=== PATIENT | male | born 1995 | race Caucasian/White ===

== ENCOUNTER 2017-10-30 10:45 | Emergency (ER) | payer OTHER ==
[~2017-10-30] VITALS: Ht 162.6 cm; Wt 96.7 kg
[2017-10-30 11:10] VITALS: TEMP 36.9; Ht 162.6 cm; Wt 96.7 kg
[2017-10-30] MEDS ORDERED: XYLOCAINE 1%/SOD BICARB 20 ML VIAL INFIL STA (11:53)
--- NOTE | 2017-10-30 12:43 | EMERGENCY ROOM VISIT NOTE ---
ED Visit Note First contact with patient: 11:34 CHIEF COMPLAINT: Finger laceration HISTORY OF PRESENT ILLNESS: This 22-year-old male patient presents to the emergency department, ambulatory, approximately 45 minutes after cutting the distal left index finger while cutting an avocado. The bleeding has not stopped. Denies weakness or numbness of the finger. The patient has full range of motion of the fingers. The patient rates the pain as throbbing/sharp and 8/ 10. The patient denies any other injuries. The patient's tetanus shot is not up to date. REVIEW OF SYSTEMS: A 6 system review of systems was completed with positives and pertinent negatives listed in the HPI. ALLERGIES: None MEDICATIONS: None PMH: None SOCIAL HISTORY: The patient lives locally with family. He denies drug, alcohol , tobacco use. PHYSICAL EXAM: Vital Signs: Reviewed Nurse's notes, vital signs stable. GENERAL : This is a 22-year-old male, in no acute distress, well developed, well nourished. SKIN: There is a 2 cm long laceration on the anterior aspect of the distal left index finger. This appears to be a partial avulsion injury. There is no foreign material in the wound and it looks clean. There is moderate bleeding. No deep structures such as tendons, bones, or significant blood vessels are seen in the base of the wound. Extension and flexion of the finger is full and strong. Full range of motion of the wrist and other fingers. Capillary refill less than 2 seconds. Normal sensation to light and sharp touch. EMERGENCY DEPARTMENT COURSE: I examined the patient. Verbal consent was obtained to perform the procedure, which was done by our PA student under my direct supervision. Using sterile technique the wound was cleansed with Betadine. 8 ml of 1% buffered lidocaine was used to perform a digital block to anesthetize the patient. The area was sterilely draped. Once the patient was anesthetized, the wound was copiously irrigated under pressure with sterile saline. The wound was explored and there were no deep structures injured. The laceration was repaired using 18 simple interrupted 5-0 nylon sutures. The patient tolerated the procedure well. Hemostasis was achieved. The area was cleaned with sterile saline and dressed with bacitracin ointment and bandage. The patient refused tetanus vaccination despite the risks associated with refusing this vaccination. Discharge instructions reviewed. The patient was discharged home in good condition. I attest that I have personally reviewed the patient's current medication list. Patient was found to have normal blood pressure on screening and does not require follow-up. Differential diagnosis: laceration, fracture, open fracture, avulsion, contusion , and others DIAGNOSIS: Finger laceration Current/Historical Medications Scheduled Cephalexin Monohydrate (Keflex), 500 MG PO QID Allergies Coded Allergies: No Known Allergies (Unverified , 10/30/17) Vital Signs Date Time Temp Pulse Resp B/P (MAP) Pulse Ox O2 Delivery O2 Flow Rate FiO2 10/30/17 14:09 62 20 153/86 98 10/30/17 12:42 67 16 135/83 99 10/30/17 11:10 36.9 85 20 126/88 96 Room Air Medications Administered Medications (Trade) Dose Ordered Sig/[place] Route Start Time Stop Time Status Last Admin Dose Admin Lidocaine HCl (Buffered Lidocaine 1% Inj) 20 ml ONE STAT INFIL 10/30/17 11:53 10/30/17 11:55 DC 10/30/17 12:17 20 ML Departure Information Impression Primary Impression: Laceration of left index finger Dispostion Home / Self-Care Condition GOOD Prescriptions Cephalexin Monohydrate (Keflex) 500 Mg Cap 500 MG PO QID for 7 Days, #28 CAP Prov: Angie Avila, JORDAN 10/30/17 Referrals No Doctor, Assigned (PCP) Patient Instructions ED Laceration Ext Sutr Stap Tape, [facility] Additional Instructions You have received [] sutures on your left index finger. These sutures are NOT dissolvable and WILL need to be removed by a health care provider in 10-14 days. You can return to the Emergency Department or contact your Primary Care Provider to have the sutures removed. Proper wound care is essential for adequate wound healing and infection prevention. You can shower and clean the wound with soap and water. Do not scour over the wound, pat dry with a towel. Do not submerse the wound (i.e. bathe or dish wash) until the sutures have been removed. You can use an antibiotic ointment with a dressing over the wound for the next 3-4 days. After this time you may leave the wound dry and open to the air. If crust develops over the wound you can use a Q-tip to apply a 1:1 peroxide:water solution to clean the wound. Cephalexin(Keflex) 500mg: Take one pill four times daily for 7 days for your skin infection. All antibiotics can cause diarrhea. If this occurs and you feel worse or it does not resolve in 1-2 days follow up with your doctor or return to the Emergency Department as this could be signs of serious underlying problems. Any medication can cause an allergic reaction, stop the pills immediately and return to the ER for rash, hives, breathing difficulties, or swelling. Look for signs of infection of the wound including: increased pain, swelling, foul discharge, streaking, or increased temperature. If any of these are noticed you should return to the Emergency Department for further assessment and treatment. As with any laceration you may have received nerve damage to the surrounding tissues. This damage may or may not be permanent. You should keep the area covered with sunscreen for the first 6 months to 1 year when at risk for exposure to help minimize scarring. You can also use scar reducing creams or Vitamin E oil to help minimize scarring. For pain control, you can use the following [id number] medicines (if >12 yo): Ibuprofen(Motrin, Advil) may be used for fever or pain. Use 600mg every six hours as needed. Take with food. Avoid using more than 2400mg in a 24 hour period. Do not use 2400mg per day for more than three consecutive days without physician direction. Prolonged inappropriate use can lead to stomach upset or ulcers. (AND/OR) Acetaminophen(Tylenol) may be used for fever or pain. Use 1000mg every six hours as needed. Avoid using more than 3000mg in a 24 hour period. Return to the emergency department if your symptoms worsen despite treatment course outlined above. Problem Qualifiers Primary Impression: Laceration of left index finger Encounter type: initial encounter Damage to nail status: without damage Foreign body presence: without foreign body Qualified Codes: S61.211A - Laceration without foreign body of left index finger without damage to nail, initial encounter
[2017-10-30] MEDS ORDERED: CEPH500C PO (13:43)
[2017-10-30 14:09] VITALS: BP 153/86; PULSE 62; O2SAT 98
== END 2017-10-30 14:12 | disposition home or self-care (01) ==
LOC: C.EDB 10:46 → C.EDD 14:12
DX: S61.211A Laceration without foreign body of left index finger without damage to nail, initial encounter (principal); W26.0XXA Contact with knife, initial encounter; Y92.9 Unspecified place or not applicable